=== PATIENT | female | born 1985 | race Caucasian/White ===

== ENCOUNTER 2018-03-17 09:23 | Emergency (ER) | payer MEDICAID ==
[~2018-03-17] VITALS: Ht 162.6 cm; Wt 60.0 kg
[2018-03-17] MEDS ORDERED: ondansetron/PF 4mg/2ml inj IV ONE ×2 (09:35→11:05)
[2018-03-17] MEDS ORDERED: normal saline 1000ML IV soln IVB ONE (09:35)
[2018-03-17] MEDS ORDERED: ketorolac trometh. 30mg/ml inj. IV ONE (09:50)
[2018-03-17] MEDS ORDERED: metoclopramide 5 mg/ml inj IV ONE (09:50)
[2018-03-17] MEDS ORDERED: LORazepam 2 mg/ml vial IV ONE (09:50)
[2018-03-17 09:58] LABS: BASOPHILS % (AUTO) 0 % (0-1); EOSINOPHILS % (AUTO) 0.1 % (0-6); HEMATOCRIT 38.8 % (35.0-45.0); HEMOGLOBIN 12.6 g/dl (12.0-16.0); LYMPHOCYTES # (AUTO) 0.6 X10'3 (1.1-4.8); LYMPHOCYTES % (AUTO) 6.9 % (21-51); MEAN CORPUSCULAR HEMOGLOBIN 29.3 PG (27.0-31.0); MEAN CORPUSCULAR HGB CONC 32.6 % (33.0-36.5); MEAN CORPUSCULAR VOLUME 90.1 FL (78-98); MEAN PLATELET VOLUME 9.9 FL (7.4-10.4); MONOCYTES # (AUTO) 0.1 X10'3 (0-0.9); MONOCYTES % (AUTO) 1.8 % (2-12); NEUTROPHILS # (AUTO) 7.3 X10'3 (1.8-7.7); NEUTROPHILS % (AUTO) 91.2 % (42-75); PLATELET COUNT 210 X10'3 (140-440); RED BLOOD COUNT 4.31 X10'6 (4.20-5.60); RED CELL DISTRIBUTION WIDTH 14.1 % (11.5-14.5)
[2018-03-17 10:13] LABS: ALANINE AMINOTRANSFERASE 30 U/L (12-78); ALBUMIN 3.8 G/DL (3.4-5.0); ALBUMIN/GLOBULIN RATIO 1.4 (1.1-1.5); ALKALINE PHOSPHATASE 51 IU/L (46-116); ANION GAP 9 (8-16); ASPARTATE AMINO TRANSFERASE 18 U/L (10-37); BILIRUBIN,TOTAL 0.3 MG/DL (0.1-1.0); BLOOD UREA NITROGEN 13 MG/DL (7-18); BUN/CREATININE RATIO 17.8 (6.6-38.0); CALCIUM 8.5 MG/DL (8.5-10.1); CHLORIDE 108 MMOL/L (99-107); CREATININE 0.73 MG/DL (0.40-0.90); GLUCOSE 125 MG/DL (70-104); POTASSIUM 3.3 MMOL/L (3.5-5.1); SODIUM 141 MMOL/L (135-145); TOTAL CARBON DIOXIDE 24.3 MMOL/L (24-32); TOTAL PROTEIN 6.5 G/DL (6.4-8.2); eGFR > 90 ML/MIN
[2018-03-17 10:17] LABS: LIPASE 86 U/L (73-393)
[2018-03-17] MEDS ORDERED: diphenhydrAMINE 50 mg/ml inj IV ONE (11:05)
[2018-03-17] MEDS ORDERED: ONDA4TAB9 SL (14:23)
[2018-03-17] MEDS ORDERED: haloperidol lactate 5mg/ml inj IM ONE (14:35)
[2018-03-17] MEDS ORDERED: diphenhydrAMINE 50 mg/ml inj IM ONE (14:45)
[2018-03-17 16:30] VITALS: BP 138/76
== END 2018-03-17 16:33 | disposition home or self-care (01) ==
LOC: ER 09:24
DX: G43.909 Migraine, unspecified, not intractable, without status migrainosus (principal); G43.A0 Cyclical vomiting, in migraine, not intractable; R10.30 Lower abdominal pain, unspecified; Z88.8 Allergy status to other drugs, medicaments and biological substances; Z79.899 Other long term (current) drug therapy
CPT/HCPCS: 36415; 80053; 83690; 85025; 96361; 96372; 96374; 96375; 99284; J1200; J1630; J1885; J2060; J2405; J2765

== ENCOUNTER → 2018-07-09 | Emergency (ER) | payer MEDICAID ==
[~2018-07-09] VITALS: Ht 165.1 cm; Wt 62.0 kg
[~2018-07-09] MED LIST: CLOT15CR10 TP; DIPH25CA83 PO; ONDA8TAB9 PO; dexamethasone sod phosphate 10mg/ml inj IV STA; diphenhydrAMINE 50 mg/ml inj IV ONE; ketorolac trometh. 30mg/ml inj. IV ONE; morphine 2 MG/ML inj. syringe IV ONE; normal saline 1000ml 1,000 ML IV ONE; ondansetron/PF 4mg/2ml inj IV ONE; proCHLORperazine 10 MG/2 ml inj IV ONE
[2018-07-09 08:43] LABS: BASOPHILS % (AUTO) 0 % (0-1); EOSINOPHILS # (AUTO) 0.1 X10'3 (0-0.9); EOSINOPHILS % (AUTO) 1.1 % (0-6); HEMATOCRIT 40.6 % (35.0-45.0); HEMOGLOBIN 13.4 g/dl (12.0-16.0); LYMPHOCYTES # (AUTO) 0.9 X10'3 (1.1-4.8); LYMPHOCYTES % (AUTO) 7.6 % (21-51); MEAN CORPUSCULAR HEMOGLOBIN 29.4 PG (27.0-31.0); MEAN CORPUSCULAR HGB CONC 33.1 % (33.0-36.5); MEAN PLATELET VOLUME 9.8 FL (7.4-10.4); MONOCYTES # (AUTO) 0.3 X10'3 (0-0.9); MONOCYTES % (AUTO) 2.8 % (2-12); NEUTROPHILS # (AUTO) 10.1 X10'3 (1.8-7.7); NEUTROPHILS % (AUTO) 88.5 % (42-75); PLATELET COUNT 245 X10'3 (140-440); RED BLOOD COUNT 4.56 X10'6 (4.20-5.60); RED CELL DISTRIBUTION WIDTH 13.7 % (11.5-14.5); WHITE BLOOD COUNT 11.4 X10'3 (4.5-11.0)
[2018-07-09 09:01] LABS: ALANINE AMINOTRANSFERASE 28 U/L (12-78); ALBUMIN 4.1 G/DL (3.4-5.0); ALBUMIN/GLOBULIN RATIO 1.2 (1.1-1.5); ALKALINE PHOSPHATASE 69 IU/L (46-116); ANION GAP 9 (8-16); BILIRUBIN,TOTAL 0.4 MG/DL (0.1-1.0); BLOOD UREA NITROGEN 17 MG/DL (7-18); BUN/CREATININE RATIO 29.3 (6.6-38.0); CALCIUM 8.9 MG/DL (8.5-10.1); CHLORIDE 106 MMOL/L (99-107); CREATININE 0.58 MG/DL (0.40-0.90); GLUCOSE 111 MG/DL (70-104); SODIUM 140 MMOL/L (135-145); TOTAL CARBON DIOXIDE 24.7 MMOL/L (24-32); TOTAL PROTEIN 7.5 G/DL (6.4-8.2); eGFR > 90 ML/MIN
[2018-07-09 09:03] LABS: ASPARTATE AMINO TRANSFERASE 30 U/L (10-37); POTASSIUM 4.4 MMOL/L (3.5-5.1)
[2018-07-09 12:24] VITALS: BP 90/53
== END | disposition home or self-care (01) ==
LOC: ER 08:07
DX: G43.909 Migraine, unspecified, not intractable, without status migrainosus (principal); Z88.2 Allergy status to sulfonamides; Z79.899 Other long term (current) drug therapy; Z90.710 Acquired absence of both cervix and uterus
CPT/HCPCS: 36415; 80053; 85025; 85610; 96374; 96375; 96376; 99283; J0780; J1100; J1200; J1885; J2270; J2405; J7030

== ENCOUNTER 2018-11-23 01:01 | Emergency (ER) | payer MEDICAID ==
[~2018-11-23] VITALS: Ht 162.6 cm; Wt 60.0 kg
[~2018-11-23 01:01] MED LIST changes: -dexamethasone sod phosphate 10mg/ml inj IV STA; -diphenhydrAMINE 50 mg/ml inj IV ONE; -ketorolac trometh. 30mg/ml inj. IV ONE; -morphine 2 MG/ML inj. syringe IV ONE; -normal saline 1000ml 1,000 ML IV ONE; -ondansetron/PF 4mg/2ml inj IV ONE; -proCHLORperazine 10 MG/2 ml inj IV ONE
[2018-11-23] MEDS ORDERED: ketorolac trometh. 30mg/ml inj. IV ONE (01:35)
[2018-11-23] MEDS ORDERED: normal saline 1000ML IV soln IVB ONE (01:35)
[2018-11-23] MEDS ORDERED: diphenhydrAMINE 50 mg/ml inj IV ONE ×2 (01:35→03:30)
[2018-11-23] MEDS ORDERED: metoclopramide 5 mg/ml inj IV ONE (01:35)
[2018-11-23] MEDS ORDERED: ondansetron/PF 4mg/2ml inj IV ONE (03:00)
[2018-11-23 03:04] VITALS: BP 151/97
[2018-11-23] MEDS ORDERED: BUTA-281 PO (03:55)
== END 2018-11-23 04:19 | disposition home or self-care (01) ==
LOC: ER 01:01
DX: G43.909 Migraine, unspecified, not intractable, without status migrainosus (principal); R11.2 Nausea with vomiting, unspecified; H53.149 Visual discomfort, unspecified; Z90.710 Acquired absence of both cervix and uterus; Z88.8 Allergy status to other drugs, medicaments and biological substances; Z79.899 Other long term (current) drug therapy
CPT/HCPCS: 96361; 96374; 96375; 96376; 99283; J1200; J1885; J2405; J2765; J7030

== ENCOUNTER 2019-02-15 07:33 | Emergency (ER) | payer MEDICAID ==
[~2019-02-15] VITALS: Ht 165.1 cm; Wt 63.6 kg
[~2019-02-15 07:33] MED LIST changes: +BUTA-281 PO
[2019-02-15] MEDS ORDERED: normal saline 1000ML IV soln IVB ONE (08:35)
[2019-02-15] MEDS ORDERED: ketorolac tromethamine 15mg/ml inj. IV ONE (08:35)
[2019-02-15] MEDS ORDERED: methylPREDNISolone sod succ 125mg/2ml vial IV ONE (08:35)
[2019-02-15] MEDS ORDERED: ondansetron/PF 4mg/2ml inj IV ONE (08:35)
[2019-02-15 09:58] VITALS: BP 111/53
== END 2019-02-15 10:00 | disposition home or self-care (01) ==
LOC: ER 07:33
DX: G43.909 Migraine, unspecified, not intractable, without status migrainosus (principal); H53.149 Visual discomfort, unspecified; R11.10 Vomiting, unspecified; Z90.710 Acquired absence of both cervix and uterus; Z88.8 Allergy status to other drugs, medicaments and biological substances; Z79.899 Other long term (current) drug therapy
CPT/HCPCS: 96361; 96374; 96375; 99283; J1885; J2405; J2930; J7030

== ENCOUNTER 2019-02-26 09:09 | Emergency (ER) | payer MEDICAID ==
[~2019-02-26] VITALS: Ht 162.6 cm; Wt 63.6 kg
[2019-02-26] MEDS ORDERED: dexamethasone sod phosphate 10mg/ml inj IM STA (09:18)
[2019-02-26] MEDS ORDERED: ketorolac trometh inj. 60 MG/2 ML VIAL IM ONE (09:20)
[2019-02-26] MEDS ORDERED: diphenhydrAMINE 50 mg/ml inj IM ONE ×2 (09:20→11:15)
[2019-02-26] MEDS ORDERED: ketorolac tromethamine 15mg/ml inj. IM ONE (09:25)
[2019-02-26] MEDS ORDERED: ondansetron 4mg rapidly disintigrating tab PO ONE (11:10)
[2019-02-26] MEDS ORDERED: sucralfate 1gm/10ml UD suspension PO ONE (11:15)
--- NOTE | 2019-02-26 11:21 | NUR ---
spole to john cardenas patient still nauseated: only small amount of mostly clear liquid with green tinge: frothy in vomit bag; another new bag given
--- NOTE | 2019-02-26 12:08 | NUR ---
PATIENT SLEEPING, AWOKE TO MY VOICE, ASKED HOW SHE WAS FEELING: "MY STOMACH HURTS, NAUSEA, ANDUJAR 310". NO VOMIT IN VOMIT BAG, HEATHER POON INFORMED PATIENT DRANK 60 ML OF H20 AND TOOK CARAFATE WNL.
--- NOTE | 2019-02-26 12:46 | NUR ---
john cardenas informed that patient still complaining of stomach pain; john cardenas will go in and talk to her
[2019-02-26] MEDS ORDERED: proMETHazine 12.5mg rectal suppository RC ONE (13:35)
--- NOTE | 2019-02-26 13:42 | NUR ---
SPOKE TO PHARMACIST AND TOLD HIM THAT THE PATIENT'S "REACTION" TO REGLAN AND COMPAZINE IS "FEELING SHAKEY" INSIDE NO VOMITING IN OVER 2 HOURS BUT C/O STOMACH ACHE
[2019-02-26 13:54] VITALS: BP 138/96
== END 2019-02-26 15:57 | disposition home or self-care (01) ==
LOC: ER 09:10
DX: G43.909 Migraine, unspecified, not intractable, without status migrainosus (principal); Z88.8 Allergy status to other drugs, medicaments and biological substances; Z79.899 Other long term (current) drug therapy; Z90.710 Acquired absence of both cervix and uterus
CPT/HCPCS: 96372; 99284; J1100; J1200; J1885; J2405

== ENCOUNTER 2019-02-27 02:13 | Emergency (ER) | payer MEDICAID ==
[~2019-02-27] VITALS: Ht 162.6 cm; Wt 68.2 kg
[2019-02-27] MEDS ORDERED: ketorolac trometh inj. 60 MG/2 ML VIAL IM ONE (03:05)
[2019-02-27] MEDS ORDERED: ketamine 10mg/ml 20ml inj IM ONE (03:05)
[2019-02-27] MEDS ORDERED: NORMAL SALINE IV ONE (03:10)
[2019-02-27] MEDS ORDERED: KETAMINE IV ONE (03:10)
[2019-02-27] MEDS ORDERED: ketorolac trometh. 30mg/ml inj. IV STA (03:12)
[2019-02-27 04:19] VITALS: BP 115/74
== END 2019-02-27 05:03 | disposition home or self-care (01) ==
LOC: ER 02:13
DX: H53.149 Visual discomfort, unspecified (principal); G43.909 Migraine, unspecified, not intractable, without status migrainosus; Z90.710 Acquired absence of both cervix and uterus; Z88.8 Allergy status to other drugs, medicaments and biological substances; Z79.899 Other long term (current) drug therapy
CPT/HCPCS: 96365; 96375; 99283; J1885

== ENCOUNTER 2019-03-31 07:41 | Emergency (ER) | payer MEDICAID ==
[~2019-03-31] VITALS: Ht 160 cm; Wt 65.0 kg
[2019-03-31] MEDS ORDERED: normal saline 1000ML IV soln IVB ONE ×2 (08:00→10:45)
[2019-03-31] MEDS ORDERED: diphenhydrAMINE 50 mg/ml inj IV ONE (08:00)
[2019-03-31] MEDS ORDERED: proCHLORperazine 10 MG/2 ml inj IV ONE (08:00)
[2019-03-31] MEDS ORDERED: ketorolac trometh. 30mg/ml inj. IV ONE (08:00)
[2019-03-31] MEDS ORDERED: ketamine 10mg/ml 20ml inj IV ONE (08:15)
[2019-03-31] MEDS ORDERED: BUPIVAcaine/PF 7.5mg/ml (0.75%) 10ml vial IJ ONE (08:15)
[2019-03-31] MEDS ORDERED: NORMAL SALINE IV ONE (08:20)
[2019-03-31] MEDS ORDERED: KETAMINE IV ONE (08:20)
[2019-03-31 08:43] LABS: URINE AMPHETAMINE SCREEN NEGATIVE (Neg); URINE BARBITUATE SCREEN NEGATIVE (Neg); URINE BENZODIAZEPINES SCREEN NEGATIVE (Neg); URINE CANNABINOID SCREEN POSITIVE (Neg); URINE COCAINE SCREEN NEGATIVE (Neg); URINE METHADONE SCREEN NEGATIVE (Neg); URINE OPIATE SCREEN NEGATIVE (Neg); URINE PHENCYCLIDINE SCREEN NEGATIVE (Neg)
[2019-03-31] MEDS ORDERED: ONDA4TAB6 PO (10:09)
[2019-03-31] MEDS ORDERED: morphine 2 MG/ML inj. syringe IV PRN (10:10)
[2019-03-31 10:42] VITALS: BP 140/75
== END 2019-03-31 11:16 | disposition home or self-care (01) ==
LOC: ER 07:42
DX: G43.909 Migraine, unspecified, not intractable, without status migrainosus (principal); R11.2 Nausea with vomiting, unspecified; F12.90 Cannabis use, unspecified, uncomplicated; Z90.710 Acquired absence of both cervix and uterus; Z88.6 Allergy status to analgesic agent; Z88.8 Allergy status to other drugs, medicaments and biological substances; Z79.899 Other long term (current) drug therapy
CPT/HCPCS: 80305; 96361; 96365; 96375; 99284; J0780; J1200; J1885; J2270; J3490; J7030

== ENCOUNTER 2019-08-31 21:44 | Emergency (ER) | payer MEDICAID ==
[~2019-08-31] VITALS: Ht 165.1 cm; Wt 60.9 kg
[~2019-08-31 21:44] MED LIST changes: +ONDA4TAB6 PO
[2019-08-31] MEDS ORDERED: LORazepam 2 mg/ml vial IV ONE (22:50)
[2019-08-31] MEDS ORDERED: diphenhydrAMINE 50 mg/ml inj IV ONE (22:50)
[2019-08-31] MEDS ORDERED: haloperidol lactate 5mg/ml inj IM ONE (22:50)
[2019-08-31] MEDS ORDERED: ketorolac trometh. 30mg/ml inj. IV ONE (22:50)
[2019-08-31] MEDS ORDERED: magnesium 2GM in 50ml NS 50 ML IV ONE (22:50)
[2019-08-31 23:11] LABS: HEMATOCRIT 37.4 % (35.0-45.0); HEMOGLOBIN 12.4 g/dl (12.0-16.0); RED BLOOD COUNT 4.22 X10'6 (4.20-5.60); WHITE BLOOD COUNT 6.1 X10'3 (4.5-11.0)
[2019-08-31 23:12] LABS: BASOPHILS % (AUTO) 0.1 % (0-1); EOSINOPHILS % (AUTO) 0.1 % (0-6); LYMPHOCYTES # (AUTO) 0.4 X10'3 (1.1-4.8); LYMPHOCYTES % (AUTO) 5.9 % (21-51); MEAN CORPUSCULAR HEMOGLOBIN 29.4 PG (27.0-31.0); MEAN CORPUSCULAR HGB CONC 33.2 g/dL (33.0-36.5); MEAN CORPUSCULAR VOLUME 88.6 FL (78-98); MEAN PLATELET VOLUME 9.3 FL (7.4-10.4); MONOCYTES # (AUTO) 0.1 X10'3 (0-0.9); MONOCYTES % (AUTO) 1.8 % (2-12); NEUTROPHILS # (AUTO) 5.6 X10'3 (1.8-7.7); NEUTROPHILS % (AUTO) 92.1 % (42-75); PLATELET COUNT 262 X10'3 (140-440); RED CELL DISTRIBUTION WIDTH 13.6 % (11.5-14.5)
[2019-08-31 23:27] LABS: ALANINE AMINOTRANSFERASE 29 U/L (12-78); ALBUMIN 4.2 G/DL (3.4-5.0); ALBUMIN/GLOBULIN RATIO 1.4 (1.1-1.5); ALKALINE PHOSPHATASE 68 IU/L (46-116); ANION GAP 8 (8-16); ASPARTATE AMINO TRANSFERASE 17 U/L (10-37); BILIRUBIN,TOTAL 0.2 MG/DL (0.1-1.0); BLOOD UREA NITROGEN 15 MG/DL (7-18); BUN/CREATININE RATIO 25.4 (6.6-38.0); CALCIUM 8.7 MG/DL (8.5-10.1); CHLORIDE 107 MMOL/L (99-107); CREATININE 0.59 MG/DL (0.40-0.90); GLUCOSE 129 MG/DL (70-104); MAGNESIUM 1.7 MG/DL (1.5-2.4); POTASSIUM 3.8 MMOL/L (3.5-5.1); SODIUM 141 MMOL/L (135-145); TOTAL PROTEIN 7.1 G/DL (6.4-8.2); eGFR > 90 ML/MIN
--- NOTE | 2019-09-01 00:55 | NUR ---
PER PATIENT HER AUNT WILL BE PROVIDE TRANSPORTATION HOME. CONTACTED SUNG (AUNT) WHO STATED SHE IS ON HER WAY TO PICK PATIENT UP
[2019-09-01 01:38] VITALS: BP 100/64
== END 2019-09-01 01:40 | disposition home or self-care (01) ==
LOC: ER 21:45
DX: G43.909 Migraine, unspecified, not intractable, without status migrainosus (principal); R11.0 Nausea; N64.4 Mastodynia; F12.90 Cannabis use, unspecified, uncomplicated; Z90.710 Acquired absence of both cervix and uterus; Z60.2 Problems related to living alone; Z88.8 Allergy status to other drugs, medicaments and biological substances; Z79.899 Other long term (current) drug therapy
CPT/HCPCS: 36415; 80053; 83735; 84484; 85025; 93005; 96365; 96372; 96375; 99284; J1200; J1630; J1885; J2060; J3475

== ENCOUNTER 2019-10-03 05:29 | Emergency (ER) | payer MEDICAID ==
[~2019-10-03] VITALS: Ht 160 cm; Wt 63.6 kg
[2019-10-03] MEDS ORDERED: dexamethasone sod phosphate 10mg/ml inj IV STA (05:37)
[2019-10-03] MEDS ORDERED: ONDA4TAB6 PO (05:39)
[2019-10-03] MEDS ORDERED: ketorolac tromethamine 15mg/ml inj. IV ONE (05:40)
[2019-10-03] MEDS ORDERED: diphenhydrAMINE 50 mg/ml inj IV ONE (05:40)
[2019-10-03] MEDS ORDERED: normal saline 1000ML IV soln IVB ONE ×2 (05:40→07:45)
[2019-10-03] MEDS ORDERED: ondansetron/PF 4mg/2ml inj IV ONE (06:15)
[2019-10-03] MEDS ORDERED: haloperidol lactate 5mg/ml inj IM ONE (07:45)
[2019-10-03 09:39] VITALS: BP 106/58
== END 2019-10-03 09:41 | disposition home or self-care (01) ==
LOC: ER 05:30
DX: F12.188 Cannabis abuse with other cannabis-induced disorder (principal); G43.909 Migraine, unspecified, not intractable, without status migrainosus; F12.90 Cannabis use, unspecified, uncomplicated; Z90.710 Acquired absence of both cervix and uterus; Z60.2 Problems related to living alone; Z88.8 Allergy status to other drugs, medicaments and biological substances; Z79.899 Other long term (current) drug therapy
CPT/HCPCS: 96372; 96374; 96375; 99284; J1100; J1200; J1630; J1885; J2405; J7030

== ENCOUNTER 2020-12-22 09:50 | Emergency (ER) | payer MEDICAID ==
[~2020-12-22] VITALS: Ht 162.6 cm; Wt 63.6 kg
[2020-12-22 10:55] LABS: BASOPHILS % (AUTO) 0.3 % (0-1); EOSINOPHILS % (AUTO) 0.2 % (0-6); HEMATOCRIT 39.4 % (35.0-45.0); LYMPHOCYTES # (AUTO) 0.7 X10'3 (1.1-4.8); LYMPHOCYTES % (AUTO) 8.4 % (21-51); MEAN CORPUSCULAR HEMOGLOBIN 29.3 PG (27.0-31.0); MEAN CORPUSCULAR HGB CONC 33.1 g/dL (33.0-36.5); MEAN CORPUSCULAR VOLUME 88.4 FL (78-98); MEAN PLATELET VOLUME 9.4 FL (7.4-10.4); MONOCYTES # (AUTO) 0.3 X10'3 (0-0.9); MONOCYTES % (AUTO) 3.1 % (2-12); NEUTROPHILS # (AUTO) 7.1 X10'3 (1.8-7.7); PLATELET COUNT 276 X10'3 (140-440); RED BLOOD COUNT 4.45 X10'6 (4.20-5.60); RED CELL DISTRIBUTION WIDTH 14.2 % (11.5-14.5); WHITE BLOOD COUNT 8.1 X10'3 (4.5-11.0)
[2020-12-22 11:06] LABS: ALANINE AMINOTRANSFERASE 25 U/L (12-78); ALBUMIN 4.4 G/DL (3.4-5.0); ALBUMIN/GLOBULIN RATIO 1.5 (1.1-1.5); ALKALINE PHOSPHATASE 62 IU/L (46-116); ANION GAP 8 (8-16); ASPARTATE AMINO TRANSFERASE 15 U/L (10-37); BILIRUBIN,TOTAL 0.4 MG/DL (0.1-1.0); BLOOD UREA NITROGEN 15 MG/DL (7-18); BUN/CREATININE RATIO 20.5 (6.6-38.0); CALCIUM 9.6 MG/DL (8.5-10.1); CHLORIDE 105 MMOL/L (99-107); CREATININE 0.73 MG/DL (0.40-0.90); GLUCOSE 109 MG/DL (70-104); LIPASE < 50 U/L (73-393); POTASSIUM 3.7 MMOL/L (3.5-5.1); SODIUM 144 MMOL/L (135-145); TOTAL CARBON DIOXIDE 31.3 MMOL/L (24-32); TOTAL PROTEIN 7.4 G/DL (6.4-8.2); eGFR > 90 ML/MIN
[2020-12-22] MEDS ORDERED: haloperidol lactate 5mg/ml inj IM ONE (11:25)
[2020-12-22] MEDS ORDERED: LORazepam 2 mg/ml vial IV ONE (11:25)
[2020-12-22] MEDS ORDERED: diphenhydrAMINE 50 mg/ml inj IV ONE (11:25)
[2020-12-22] MEDS ORDERED: normal saline 1000ML IV soln IVB ONE (11:25)
[2020-12-22 12:22] LABS: URINE HCG NEGATIVE (NEG)
[2020-12-22 12:24] LABS: CLARITY,URINE SLIGHTLY CLOUDY (Clear); COLOR,URINE YELLOW (Yellow); GLUCOSE, URINE NEGATIVE (Neg); KETONES,URINE 15 mg/dl (Neg); LEUKOCYTE ESTERASE ,URINE NEGATIVE (Neg); NITRITES, URINE NEGATIVE (Neg); OCCULT BLOOD,URINE NEGATIVE (Neg); PROTEIN,URINE NEGATIVE (Neg); UROBILINOGEN,URINE 0.2 E.U/dL (0.2-1.0)
[2020-12-22 12:27] LABS: UA COLLECTION TYPE STRAIGHT CATH
[2020-12-22 12:40] LABS: AMORPHOUS PHOSPHATES 1+; SQUAMOUS EPITHELIAL CELL,UR NONE SEEN /LPF (FEW)
[2020-12-22 12:42] LABS: BACTERIA,URINE NONE SEEN /HPF (Neg); RBC,URINE NONE SEEN /HPF (0-2); WBC,URINE NONE SEEN /HPF (0-4)
[2020-12-22 16:29] VITALS: BP 116/64
[2020-12-22 16:37] LABS: URINE AMPHETAMINE SCREEN NEGATIVE (Neg); URINE BARBITUATE SCREEN NEGATIVE (Neg); URINE BENZODIAZEPINES SCREEN NEGATIVE (Neg); URINE CANNABINOID SCREEN POSITIVE (Neg); URINE COCAINE SCREEN NEGATIVE (Neg); URINE METHADONE SCREEN NEGATIVE (Neg); URINE OPIATE SCREEN NEGATIVE (Neg); URINE PHENCYCLIDINE SCREEN NEGATIVE (Neg)
== END 2020-12-22 16:31 | disposition home or self-care (01) ==
LOC: ER 09:50
DX: R11.10 Vomiting, unspecified (principal); R10.9 Unspecified abdominal pain; R19.7 Diarrhea, unspecified
CPT/HCPCS: 36415; 80053; 80305; 81001; 81025; 83690; 85025; 96361; 96372; 96374; 96375; 99285; J1200; J1630; J2060; J7030